=== PATIENT | male | born 1980 | race Caucasian/White ===

== ENCOUNTER 2020-06-14 20:19 | Emergency (ER) | payer MEDICAID, SELFPAY ==
--- NOTE | 2020-06-14 20:28 | ED.UPPEXIN ---
HPI - Extremity Injury (Upper) General Chief Complaint: Extremity Injury, Upper Stated Complaint: left hand injury Time Seen by Provider: 06/14/20 20:29 Source: patient Mode of arrival: ambulatory Limitations: no limitations History of Present Illness HPI narrative: 40-year-old man comes in today complaining of a laceration on his left radial wrist that occurred this evening. He states that he was working on a window when the glass broke and fell on his wrist, poking him. He states he has had a tetanus shot in the last 5 years. He denies any decreased range of motion, numbness. complaint: injury to: left and wrist Other injuries: none Handedness: right Place: work Severity: moderate Relieving factors: none Exacerbating factors: movement of extremity and other (palpation) Context: laceration Associated symptoms: denies other symptoms Treatments prior to arrival: bandage Related Data Home Medications Medication Instructions Recorded Confirmed No Home Medications 06/14/20 06/14/20 Allergies Allergy/AdvReac Type Severity Reaction Status Date / Time No Known Allergies Allergy Verified 06/14/20 20:58 Review of Systems Constitutional: Constitutional: Denies chills and Denies fever(s) Cardiovascular: Cardiovascular: Denies chest pain and Denies radiating jaw, neck or arm pain Respiratory: Respiratory: Denies cough and Denies dyspnea Musculoskeletal: Musculoskeletal: Denies arthralgias and Denies joint swelling Integumentary/Breasts: Skin/Breast: Denies pruritus, Denies erythema and Denies rash Neurologic: Denies numbness and Denies weakness Hematologic/Lymphatic: Hematologic/Lymphatic: Denies easy bleeding and Denies easy bruising Allergic/Immunologic: Allergic/Immunologic: Denies lip swelling and Denies throat swelling [facility] Social History Social History (Updated 06/14/20 @ 20:59 by Michael Carolina MD) Smoking status: Current every day smoker Substance use type: marijuana Living arrangements: with family Exam Const: General: healthy appearing and alert Orientation/consciousness: patient oriented x3 Limitations: no limitations Other: mild acute distress. Eyes: Conjunctivae: conjunctivae normal Pupils: Equal, round and reactive pupils present EOM: EOMs intact bilaterally Resp: Effort & Inspection: normal respiratory effort and not labored Auscultation: clear to auscultation bilaterally, no rales, no rhonchi and no wheezes Cardio: Rate: regular rate Rhythm: regular rhythm Heart sounds: no murmurs Skin: General skin exam: normal color, no jaundice and no pallor Rashes: no rashes Other: 2 cm laceration over the snuffbox. Extensor pollicis longus and extensor pollicis brevis or intact to challenge. No foreign body was found on exploration. Neuro: General: patient oriented x3, moves all extremities and no focal motor deficits Speech: normal speech Gait exam (Neuro): Normal gait present Procedures Laceration Laceration 1: Date: 06/14/20 Time: 20:40 Site: upper extremity Side (If applicable): left Size (cm): 2 Description: linear Depth: simple, single layer Local Anesthetic: lidocaine 1% and with epi Amount of anesthesia used (mL): 5 Pre-repair: wound explored and irrigated extensively ====== Skin Level ====== Skin layer closed with: nylon Size (cm): 4-0 Number of sutures: 3 Technique: simple, interrupted ====== Subcutaneous Layer ====== ====== Muscle Layer ====== ====== Tendon Layer ====== Dressing: Pressure dressing Discharge Plan Discharge Clinical Impression: Laceration of left wrist Qualifiers: Encounter type: initial encounter Qualified Code(s): S61.512A - Laceration without foreign body of left wrist, initial encounter Patient Disposition: Home, Self-Care Condition: Stable Instructions: Laceration (ED), Care For Your Stitches (ED)
[2020-06-14] MEDS: LIDO 1%/EPINEPHRINE 1:100,000 20 ML VIAL 10 ML INFILTRATE (20:35)
[2020-06-14 20:59] VITALS: BP 152/86; PULSE 99; RESP 20; TEMP 36.7; O2SAT 100
[2020-06-14 21:06] VITALS: BP 150/84; PULSE 98; RESP 20; TEMP 36.6; O2SAT 100
[2020-06-14] MEDS: NEOMYCIN/POLYMYXIN/BACITRACIN OINTMENT PACKET 2 PACKET (21:13)
== END 2020-06-14 21:18 | disposition home or self-care (01) ==
PROVIDERS: Emergency Provider Emergency Medicine
DX: S61.512A Laceration without foreign body of left wrist, initial encounter (principal); W25.XXXA Contact with sharp glass, initial encounter
CPT/HCPCS: 12001; 99282

== ENCOUNTER 2023-03-13 08:34 | Outpatient (CLI) | payer OTHER, SELFPAY ==
--- NOTE | 2023-03-13 11:30 | NEURO_ITS ---
Impression: # Complains of numbness of left 1st, 2nd and 3rd fingers which goes away when he turns his head to the right. # Normal Nerve Conduction Study. No Carpal Tunnel Syndrome or ulnar neuropathy. # Normal needle/EMG exam. # Clinical correlation recommended; Further testing on neck suggested. Nerve Conduction Studies Anti Sensory Summary Table Stim Site NR Peak (ms) P-T Amp (?V) Site1 Site2 Delta-P (ms) Dist (cm) Tre (m/s) Left Median Anti Sensory (2-3nd Digit) Wrist 2.9 39.9 Wrist 2-3nd Digit 2.9 14.0 48 Wrist 2.9 28.1 Wrist 2-3nd Digit 2.9 14.0 48 Left Radial Anti Sensory (Base 1st Digit) Wrist 1.7 30.7 Wrist Base 1st Digit 1.7 0.0 Left Ulnar Anti Sensory (5th Digit) Wrist 2.1 25.4 Wrist 5th Digit 2.1 14.0 67 Motor Summary Table Stim Site NR Onset (ms) O-P Amp (mV) Site1 Site2 Delta-0 (ms) Dist (cm) Tre (m/s) Left Median Motor (Abd Poll Brev) Wrist 2.9 2.1 Elbow Wrist 4.4 26.0 59 Elbow 7.3 5.9 Left Ulnar Motor (Abd Dig Minimi) Wrist 2.3 4.2 A Elbow Wrist 4.7 28.0 60 A Elbow 7.0 3.8 F Wave Studies NR F-Lat (ms) L-R F-Lat (ms) Left Median (Mrkrs) (Abd Poll Brev) 27.42 Left Ulnar (Mrkrs) (Abd Dig Min) 27.71 EMG Side Muscle Nerve Root Ins Act Fibs Amp Dur Recrt Comment Left 1stDorInt Ulnar C8-T1 Nml Nml Nml Nml Nml Left Ext Indicis Radial (Post Int) C7-8 Nml Nml Nml Nml Nml Left Ext Digitorum Radial (Post Int) C7-8 Nml Nml Nml Nml Nml Left BrachioRad Radial C5-6 Nml Nml Nml Nml Nml Left PronatorTeres Median C6-7 Nml Nml Nml Nml Nml Left Abd Poll Brev Median C8-T1 Nml Nml Nml Nml Nml Left ABD Dig Min Ulnar C8-T1 Nml Nml Nml Nml Nml Left Biceps Musculocut C5-6 Nml Nml Nml Nml Nml Left Triceps Radial C6-7-8 Nml Nml Nml Nml Nml Left Deltoid Axillary C5-6 Nml Nml Nml Nml Nml MTDD
== END 2023-03-13 08:35 | disposition home or self-care (01) ==
LOC: ANHNEURO 08:35
PROVIDERS: Visit Provider Nurse Practitioner Family
DX: R20.0 Anesthesia of skin (principal)
CPT/HCPCS: 95886; 95909

== ENCOUNTER 2023-05-01 09:28 | Outpatient (CLI) | payer OTHER, SELFPAY ==
--- NOTE | 2023-05-01 11:00 | NEURO_ITS ---
Impression: # Complains of numbness of hands. ? # Normal Nerve Conduction Study. ? # No Carpal Tunnel Syndrome or ulnar neuropathy. ? # Normal needle/EMG exam. Nerve Conduction Studies Anti Sensory Summary Table Stim Site NR Peak (ms) P-T Amp (?V) Site1 Site2 Delta-P (ms) Dist (cm) Tre (m/s) Left Median Anti Sensory (2-3nd Digit) Wrist 3.0 52.8 Wrist 2-3nd Digit 3.0 14.0 47 Wrist 3.1 43.2 Wrist 2-3nd Digit 3.0 14.0 47 Right Median Anti Sensory (2-3nd Digit) Wrist 2.9 25.5 Wrist 2-3nd Digit 2.9 14.0 48 Wrist 2.9 29.1 Wrist 2-3nd Digit 2.9 14.0 48 Left Radial Anti Sensory (Base 1st Digit) Wrist 2.0 39.3 Wrist Base 1st Digit 2.0 0.0 Right Radial Anti Sensory (Base 1st Digit) Wrist 2.2 15.0 Wrist Base 1st Digit 2.2 0.0 Left Ulnar Anti Sensory (5th Digit) Wrist 2.6 39.4 Wrist 5th Digit 2.6 14.0 54 Right Ulnar Anti Sensory (5th Digit) Wrist 2.3 42.5 Wrist 5th Digit 2.3 14.0 61 Motor Summary Table Stim Site NR Onset (ms) O-P Amp (mV) Site1 Site2 Delta-0 (ms) Dist (cm) Tre (m/s) Left Median Motor (Abd Poll Brev) Wrist 2.9 2.3 Elbow Wrist 4.4 26.0 59 Elbow 7.3 5.7 Right Median Motor (Abd Poll Brev) Wrist 3.1 6.6 Elbow Wrist 4.8 27.0 56 Elbow 7.9 5.6 Left Ulnar Motor (Abd Dig Minimi) Wrist 2.8 5.4 A Elbow Wrist 4.6 28.0 61 A Elbow 7.4 4.8 Right Ulnar Motor (Abd Dig Minimi) Wrist 2.7 6.7 A Elbow Wrist 4.9 29.0 59 A Elbow 7.6 5.4 F Wave Studies NR F-Lat (ms) L-R F-Lat (ms) Left Median (Mrkrs) (Abd Poll Brev) 26.82 0.82 Right Median (Mrkrs) (Abd Poll Brev) 27.64 0.82 Left Ulnar (Mrkrs) (Abd Dig Min) 27.86 0.19 Right Ulnar (Mrkrs) (Abd Dig Min) 28.05 0.19 EMG Side Muscle Nerve Root Ins Act Fibs Amp Dur Recrt Comment Right 1stDorInt Ulnar C8-T1 Nml Nml Nml Nml Nml Right Ext Indicis Radial (Post Int) C7-8 Nml Nml Nml Nml Nml Right Ext Digitorum Radial (Post Int) C7-8 Nml Nml Nml Nml Nml Right BrachioRad Radial C5-6 Nml Nml Nml Nml Nml Right PronatorTeres Median C6-7 Nml Nml Nml Nml Nml Right Abd Poll Brev Median C8-T1 Nml Nml Nml Nml Nml Left 1stDorInt Ulnar C8-T1 Nml Nml Nml Nml Nml Left Ext Indicis Radial (Post Int) C7-8 Nml Nml Nml Nml Nml Left Ext Digitorum Radial (Post Int) C7-8 Nml Nml Nml Nml Nml Left BrachioRad Radial C5-6 Nml Nml Nml Nml Nml Left PronatorTeres Median C6-7 Nml Nml Nml Nml Nml Left Abd Poll Brev Median C8-T1 Nml Nml Nml Nml Nml Right ABD Dig Min Ulnar C8-T1 Nml Nml Nml Nml Nml Left ABD Dig Min Ulnar C8-T1 Nml Nml Nml Nml Nml MTDD
== END 2023-05-01 09:29 | disposition home or self-care (01) ==
PROVIDERS: Visit Provider Nurse Practitioner Family
DX: M54.2 Cervicalgia (principal)
CPT/HCPCS: 95886; 95911